=== PATIENT | female | born 1945 | race Caucasian/White ===

== ENCOUNTER 2018-04-14 06:37 | Inpatient (IN) | payer MEDICARE ==
[2018-04-14] VITALS (11 sets, daily range): BP systolic 83–124; BP diastolic 53–82; PULSE 104–134; RESP 20–24; TEMP 96.8–98.2; O2SAT 97–99
[~2018-04-14] VITALS: Ht 152.4 cm; Wt 40.3 kg
[~2018-04-14 06:37] MED LIST: ADVA250A INH; ALBU1AER INH; CART240C4 PO; COMBAER INH; DUONI NEB; GLUCTAB PO; LASI20TA PO; POTA-243 PO; POTA20PA PO; PRED1TAB PO; SIMV40TA PO; SPIRCAP INH; [UNRECOGNIZED DRUG - CODE] PO
[2018-04-14] MEDS ORDERED: POTA-163 PO (07:10)
[2018-04-14] MEDS ORDERED: SPIRCAP INH (07:10)
[2018-04-14] MEDS ORDERED: PRED5TAB PO (07:10)
[2018-04-14] MEDS ORDERED: SIMV40TA PO (07:10)
[2018-04-14] MEDS ORDERED: ALBUAER3 INH (07:10)
[2018-04-14] MEDS ORDERED: FURO20TA PO (07:10)
[2018-04-14] MEDS ORDERED: ADVA250A INH (07:10)
[2018-04-14] MEDS ORDERED: DILT240C44 PO (07:10)
[2018-04-14] MEDS ORDERED: IPRASOL INH (07:10)
[2018-04-14] MEDS ORDERED: SODIUM CHLORID 0.9% 500 ML INJ 500 ML IV ONE ×2 (07:15→08:45)
[2018-04-14] MEDS ORDERED: SODIUM CHLORIDE 0.9% FLUSH 10 ML FLUSH IVF PRN (07:15)
--- NOTE | 2018-04-14 07:18 | PD ---
HPI Chief Complaint: Respiratory Symptoms Time Seen by Provider: 07:06 Travel History International Travel<30 days: No Contact w/Intl Traveler<30days: No Traveled to known affect area: No History of Present Illness HPI Patient presents to the emergency department secondary to difficulty breathing. States that her oxygen malfunction today and she has some shortness of breath. She is on home O2 2-3 L 24/ secondary to COPD. He was brought in by [facility] and received 1 breathing treatment in route. States that she believes her COPD is "acting up" secondary to the equipment failure. She denies chest pain, fever, chills, nausea, vomiting, abdominal pain, diarrhea, recent travel. She reports that her left lower extremity is swollen secondary to "my sherrie." + cough with white phlegm, sputum amount hasn't increased. 0732: daughter also presents to ER stating that the company is coming this afternoon to repair the machine, breathing treatments increase her HR, and the dyspnea is secondary to the equipment failure. Also, her cat scrathched her several months ago on her LLE and she had swelling after that which has resolved. Per patient and her daughter that was months ago. No swelling recently. PFSH Past Medical History Blood Disorders: No Anxiety: Yes Depression: No Cancer: No Cardiovascular Problems: Yes High Cholesterol: Yes COPD: Yes Diabetes: Yes Patient Takes Glucophage: Yes Diminished Hearing: No Endocrine: Yes Gastrointestinal Disorders: No Genitourinary: No Hypertension: Yes (borderline- ) Immune Disorder: No Musculoskeletal: Yes Neurologic: No Psychiatric: No Reproductive: No Respiratory: Yes Tetanus Vaccination: > 5 Years Influenza Vaccination: Yes ?: Not Menopausal: Yes Past Surgical History Cardiac Surgery: No Genitourinary Surgery: No Gynecologic Surgery: Yes (hysterectomy) Hysterectomy: Yes Neurologic Surgery: No Thoracic Surgery: No Other Surgery: Yes (pylonital-cyst removed) Social History Alcohol Use: Yes (1 mixed drink a week) Tobacco Use: No (QUIT 2 YEARS AGO. SMOKED 1 1- 1/2 PPD) Substance Use: No Allergies-Medications (Allergen,Severity, Reaction): Coded Allergies: penicillin G (Unverified Allergy, Mild, [place], 04/14/18) Reported Meds & Prescriptions Reported Meds & Active Scripts Active Reported Pioglitazone (Pioglitazone HCl) 30 Mg Tab 30 Mg PO DAILY Lorazepam 0.5 Mg Tab 0.5 Mg PO Q8H PRN Losartan (Losartan Potassium) 50 Mg Tab 50 Mg PO DAILY Metoprolol Succinate ER 24 HR (Metoprolol Succinate) 100 Mg Tab 100 Mg PO DAILY Prolia Inj (Denosumab) 60 Mg/Ml Inj 60 Mg SQ Q180D Advair Diskus Inh (Fluticasone-Salmeterol Inh) 250-50 Mcg/Blist Aer 1 Puff INH BID Rinse mouth after use. Spiriva Handihaler (Tiotropium Inh) 18 Mcg Cap 18 Mcg INH DAILY 1 capsule = 18 mcg Simvastatin 40 Mg Tab 40 Mg PO HS Prednisone 5 Mg Tab 5 Mg PO DAILY Potassium Chloride ER (Potassium Chloride) 20 Meq Tab 10 Meq PO DAILY Furosemide 20 Mg Tab 20 Mg PO DAILY PRN Duoneb (Ipratropium-Albuterol Neb) 0.5-2.5 Mg/3 Ml Neb 1 Nebule INH Q4HR NEB PRN Proair Hfa 8.5 GM Inh (Albuterol Sulfate) 90 Mcg/Act Aer 1 Puff INH Q4H PRN 108 mcg/actuation Review of Systems Except as stated in HPI: all other systems reviewed are Neg Physical Exam Narrative GENERAL: Thin appearing, on oxygen via nasal cannula and in no acute distress. SKIN: Focused skin assessment warm/dry. HEAD: Atraumatic. Normocephalic. EYES: Extraocular muscles intact bilaterally. No scleral icterus. No injection or drainage. ENT: No nasal bleeding or discharge. Mucous membranes pink and moist. NECK: Trachea midline. No JVD. CARDIOVASCULAR: Tachycardic. No murmur appreciated. RESPIRATORY: No accessory muscle use. Clear to auscultation. Breath sounds equal bilaterally. GASTROINTESTINAL: Abdomen soft, non-tender, nondistended. Hepatic and splenic margins not palpable. MUSCULOSKELETAL: No obvious deformities. No clubbing. No cyanosis. No edema. No left lower extremity edema. NEUROLOGICAL: Awake and alert. No obvious cranial nerve deficits. Motor grossly within normal limits. Normal speech. PSYCHIATRIC: Appropriate mood and affect; insight and judgment normal. Data Data Last Documented VS Vital Signs Date Time Temp Pulse Resp B/P (MAP) Pulse Ox O2 Delivery O2 Flow Rate FiO2 04/14/18 09:14 114 22 115/82 (93) 99 Nasal Cannula 2.00 04/14/18 08:00 98.1 Orders Orders Complete Blood Count With Diff (04/14/18 07:14) Comprehensive Metabolic Panel (04/14/18 07:14) D-Dimer (04/14/18 07:14) Act Partial Throm Time (Ptt) (04/14/18 07:14) Prothrombin Time / Inr (Pt) (04/14/18 07:14) Magnesium (Mg) (04/14/18 07:14) Ckmb (Isoenzyme) Profile (04/14/18 07:14) Troponin I (04/14/18 07:14) Iv Access Insert/Monitor (04/14/18 07:14) Electrocardiogram (04/14/18 07:14) Ecg Monitoring (04/14/18 07:14) Oximetry (04/14/18 07:14) Oxygen Administration (04/14/18 07:14) Chest, Single Ap (04/14/18 07:14) Sodium Chloride 0.9% Flush (Ns Flush) (04/14/18 07:15) Sodium Chlorid 0.9% 500 Ml Inj (Ns 500 M (04/14/18 07:15) Blood Culture (04/14/18 07:59) Lactic Acid Sepsis Protocol (04/14/18 07:59) Levofloxacin 750 Mg Premix Inj (Levaquin (04/14/18 08:00) CKMB (04/14/18 07:40) CKMB% (04/14/18 07:40) Sodium Chlorid 0.9% 500 Ml Inj (Ns 500 M (04/14/18 08:45) Ct Pulmonary Angiogram (04/14/18 09:11) Admit To Inpatient (04/14/18 ) Vital Signs (Adult) Q4H (04/14/18 09:23) Activity Oob With Assistance (04/14/18 09:23) Ammonium Sulfate Operator / Telemetry .CONTINUOUS (04/14/18 09:23) Diet Heart Healthy (04/14/18 Breakfast) Sodium Chlor 0.9% 1000 Ml Inj (Ns 1000 M (04/14/18 09:23) Sodium Chloride 0.9% Flush (Ns Flush) (04/14/18 09:30) Sodium Chloride 0.9% Flush (Ns Flush) (04/14/18 21:00) Acetaminophen (Tylenol) (04/14/18 09:30) Basic Metabolic Panel (Bmp) (04/15/18 06:00) Complete Blood Count With Diff (04/15/18 06:00) Resp Oxygen Tor C Titrat 1-4 L (04/14/18 ) Enoxaparin Inj (Lovenox Inj) (04/14/18 10:00) Naloxone Inj (Narcan Inj) (04/14/18 09:30) Magnesium Hydroxide Liq (Milk Of Magnesi (04/14/18 09:30) Sennosides (Senokot) (04/14/18 09:30) Bisacodyl Supp (Dulcolax Supp) (04/14/18 09:30) Lactulose Liq (Lactulose Liq) (04/14/18 09:30) Inpatient Certification (04/14/18 ) Albuterol-Ipratropium Neb (Duoneb Neb) (04/14/18 14:00) Albuterol-Ipratropium Neb (Duoneb Neb) (04/14/18 09:30) Levofloxacin 750 Mg Premix Inj (Levaquin (04/15/18 09:00) Prednisone (Deltasone) (04/14/18 21:00) Prednisone (Deltasone) (04/14/18 10:00) Diltiazem Cd (Cardizem Cd) (04/15/18 09:00) Budeson-Formot 160-4.5 Mcg Inh (Symbicor (04/14/18 21:00) Pravastatin (Pravachol) (04/14/18 21:00) Admit Order (Ed Use Only) (04/14/18 09:29) Blood Glucose Goal (Criteria) (04/14/18 09:29) Hypoglycemia 70 Mg/Dl Or < (04/14/18 09:29) Notify Dr: Other (04/14/18 09:29) Dextrose 50% In Madai (Vial) Inj (D50w (Vi (04/14/18 09:30) Glucagon Inj (Glucagon Inj) (04/14/18 09:30) Insulin Aspart Supplemtl Scale (Novolog (04/14/18 12:00) Labs Laboratory Tests Test 04/14/18 07:40 04/14/18 08:20 White Blood Count 24.4 TH/MM3 Red Blood Count 4.38 MIL/MM3 Hemoglobin 12.1 GM/DL Hematocrit 37.5 % Mean Corpuscular Volume 85.7 FL Mean Corpuscular Hemoglobin 27.5 PG Mean Corpuscular Hemoglobin Concent 32.1 % Red Cell Distribution Width 14.4 % Platelet Count 261 TH/MM3 Mean Platelet Volume 9.2 FL Neutrophils (%) (Auto) 85.3 % Lymphocytes (%) (Auto) 3.6 % Monocytes (%) (Auto) 8.6 % Eosinophils (%) (Auto) 0.1 % Basophils (%) (Auto) 2.4 % Neutrophils # (Auto) 20.8 TH/MM3 Lymphocytes # (Auto) 0.9 TH/MM3 Monocytes # (Auto) 2.1 TH/MM3 Eosinophils # (Auto) 0.0 TH/MM3 Basophils # (Auto) 0.6 TH/MM3 CBC Comment AUTO DIFF Differential Comment AUTO DIFF CONFIRMED Platelet Estimate NORMAL Platelet Morphology Comment NORMAL Red Cell Morphology Comment NORMAL Blood Urea Nitrogen 16 MG/DL Creatinine 0.79 MG/DL Random Glucose 220 MG/DL Total Protein 6.8 GM/DL Albumin 3.0 GM/DL Calcium Level 9.4 MG/DL Magnesium Level 1.7 MG/DL Alkaline Phosphatase 78 U/L Aspartate Amino Transf (AST/SGOT) 23 U/L Alanine Aminotransferase (ALT/SGPT) 14 U/L Total Bilirubin 0.3 MG/DL Sodium Level 138 MEQ/L Potassium Level 4.9 MEQ/L Chloride Level 95 MEQ/L Carbon Dioxide Level 34.2 MEQ/L Anion Gap 9 MEQ/L Estimat Glomerular Filtration Rate 71 ML/MIN Total Creatine Kinase 109 U/L Creatine Kinase MB 3.4 NG/ML Troponin I LESS THAN 0.02 NG/ML Prothrombin Time 10.7 SEC Prothromb Time International Ratio 1.1 RATIO Activated Partial Thromboplast Time 18.9 SEC D-Dimer Quantitative (PE/DVT) 0.71 MG/L FEU Lactic Acid Level 1.7 mmol/L [facility] Medical Decision Making Medical Screen Exam Complete: Yes Emergency Medical Condition: Yes Interpretation(s) ECG: Sinus tachycardia at 125, short [place], similar to EKG on September 17, 2012 Labs: Leukocytosis, elevated glucose and CO2, elevated d-dimer Last Impressions CT Angiography 04/14/18 0911 Signed Impressions: CONCLUSION: 1. No evidence for pulmonary embolism. 2. Severe emphysema with scattered parenchymal densities likely infectious/inf lammatory. 3. Minimal consolidation anterior right lower lobe. 4. Minimal coronary artery calcifications. Chest X-Ray 04/14/18 0714 Signed Impressions: CONCLUSION: 1. Hazy opacity in the right lung base. The finding could represent pneumonia or scarring. 2. Underlying emphysema. Differential Diagnosis Pulmonary edema, pleural effusion, ACS, pneumonia, COPD exacerbation Narrative Course Patient presents to the emergency department complaining of difficulty breathing secondary to oxygen malfunctioning today. Patient placed on a smoked meat preparer, oxygen via nasal cannula, and labs/EKG/chest x-ray ordered. Patient also hypotensive and tachycardic, normal saline 500 cc bolus ordered. Although tachycardia may be secondary to breathing treatment. 0801: Patient's XR concerning for possible PNA. In light of the initial hypotension, tachy, and now patient states she has in fact had increase sputum production, though she initially denies, will treat with IV abx (levaquin 750mg IV 2/ PCN allergy-swelling). Will also check bd cultures and lactic acid. Admit for PNA. After 250scc IV NS HR decreased to 110 and BP increased to 107/ 55 from 83/58 on initial triage. Her O2 sat is 100% on NC. Patient given a total of 1 L IV normal saline. 0957: Patient has elevated d-dimer, getting CT scan of the chest. She is anxious in CT scanner, will give 0.5 mg IV Ativan. Sepsis Criteria SIRS Criteria (2 or more): Heart rate over 90, WBC > 07973, < 4000 or > 10% bands Sepsis Criteria (SIRS+source): Infect source susp/known Severe Sepsis (+one): Hypotension Diagnosis Primary Impression: Pneumonia Qualified Codes: J18.1 - Lobar pneumonia, unspecified organism Additional Impression: COPD (chronic obstructive pulmonary disease) Qualified Codes: J44.9 - Chronic obstructive pulmonary disease, unspecified Admitting Information Admitting Physician Requests: Admit Condition: Stable Hortencia Calvin MD Apr 14, 2018 07:18
--- NOTE | 2018-04-14 07:53 | RADRPT ---
EXAM DATE: 04/14/2018 7:29 AM EDT AGE/SEX: 72 years / Female INDICATIONS: Short of breath CLINICAL DATA: This is the patient's initial encounter. Patient reports that signs and symptoms have been present for 1 day and indicates a pain score of 0/10. MEDICAL/SURGICAL HISTORY: Chronic obstructive pulmonary disease. None. COMPARISON: [facility], CHEST SINGLE AP, 10/28/2010. . FINDINGS: A single AP erect view of the chest was obtained. This demonstrates hyperinflation both lungs. There is mild patchy opacity remaining in the right lung base which is improved from the prior remote study . Left lung is clear. The heart and mediastinal structures are within normal limits. Atherosclerotic changes are present in the aorta. There are overlying electrocardiogram leads and oxygen tubing. CONCLUSION: 1. Hazy opacity in the right lung base. The finding could represent pneumonia or scarring. 2. Underlying emphysema. Electronically signed by: Hari Wall MD 04/14/2018 7:52 AM EDT
[2018-04-14 07:55] LABS: AUTOMATED NEUTROPHIL # 20.8 TH/MM3 (1.8-7.7); BASOPHIL # 0.6 TH/MM3 (0-0.2); BASOPHIL % 2.4 % (0.0-2.0); EOSINOPHIL % 0.1 % (0.0-4.0); HEMATOCRIT 37.5 % (35.0-46.0); HEMOGLOBIN 12.1 GM/DL (11.6-15.3); LYMPH % 3.6 % (9.0-44.0); LYMPHOCYTE # 0.9 TH/MM3 (1.0-4.8); MEAN CELL VOLUME 85.7 FL (80.0-100.0); MEAN CORPUSCULAR HEMOGLOBIN 27.5 PG (27.0-34.0); MEAN CORPUSCULAR HGB CONC 32.1 % (32.0-36.0); MEAN PLATELET VOLUME 9.2 FL (7.0-11.0); MONO % 8.6 % (0.0-8.0); MONOCYTE # 2.1 TH/MM3 (0-0.9); NEUT % 85.3 % (16.0-70.0); PLATELET COUNT 261 TH/MM3 (150-450); RED BLOOD COUNT 4.38 MIL/MM3 (4.00-5.30); RED CELL DISTRIBUTION WIDTH 14.4 % (11.6-17.2); WHITE BLOOD COUNT 24.4 TH/MM3 (4.0-11.0)
[2018-04-14] MEDS ORDERED: LEVOFLOXACIN 750 MG PREMIX INJ 150 ML IV ONE (08:00)
[2018-04-14 08:09] LABS: CHLORIDE 95 MEQ/L (98-107); SODIUM (NA) 138 MEQ/L (136-145)
[2018-04-14 08:12] LABS: BICARBONATE 34.2 MEQ/L (21.0-32.0); CALCIUM 9.4 MG/DL (8.5-10.1); GLUCOSE,RANDOM 220 MG/DL (74-106); MAGNESIUM 1.7 MG/DL (1.5-2.5)
[2018-04-14 08:13] LABS: BLOOD UREA NITROGEN 16 MG/DL (7-18)
[2018-04-14 08:15] LABS: ALT (GPT) 14 U/L (10-53); AST (GOT) 23 U/L (15-37)
[2018-04-14 08:16] LABS: CREATININE 0.79 MG/DL (0.50-1.00); GLOMERULAR FILTRATION RATE 71 ML/MIN (>89)
[2018-04-14 08:17] LABS: TOTAL BILIRUBIN ADULT 0.3 MG/DL (0.2-1.0); TOTAL PROTEIN 6.8 GM/DL (6.4-8.2)
[2018-04-14 08:19] LABS: ALKALINE PHOSPHATASE 78 U/L (45-117)
[2018-04-14 08:21] LABS: TROPONIN I LESS THAN 0.02 NG/ML (0.02-0.05)
[2018-04-14 09:08] LABS: INTERNATIONAL NORMALIZED RATIO 1.1 RATIO; PROTHROMBIN TIME - PATIENT 10.7 SEC (9.8-11.6)
[2018-04-14 09:10] LABS: D-DIMER 0.71 MG/L FEU (0.00-0.50)
[2018-04-14] MEDS ORDERED: MAGNESIUM HYDROXIDE SUSP 30 ML CUP PO PRN (09:30)
[2018-04-14] MEDS ORDERED: ACETAMINOPHEN 325 MG TAB PO PRN (09:30)
[2018-04-14] MEDS ORDERED: SENNOSIDES 8.6 MG TAB PO PRN (09:30)
[2018-04-14] MEDS ORDERED: NALOXONE HCL 0.4 MG/ML AMP IV PUSH PRN (09:30)
[2018-04-14] MEDS ORDERED: GLUCAGON 1 MG/ML VIAL OTHER PRN (09:30)
[2018-04-14] MEDS ORDERED: RESP: ALBUTEROL 2.5 MG/IPRATROPIUM 0.5 MG NEB (PRN) NEB (09:30)
[2018-04-14] MEDS ORDERED: BISACODYL 10 MG SUPP RECTAL PRN (09:30)
[2018-04-14] MEDS ORDERED: SODIUM CHLORIDE 0.9% FLUSH 10 ML FLUSH IV FLUSH PRN (09:30)
[2018-04-14] MEDS ORDERED: DEXTROSE 50% IN WATER 50 ML VIAL(D50) IV PUSH PRN (09:30)
[2018-04-14] MEDS ORDERED: LACTULOSE SYRUP 20 GM/30 ML CUP PO PRN (09:30)
[2018-04-14] MEDS ORDERED: LORazepam 2 MG/ML VIAL IV PUSH ONE (10:00)
[2018-04-14] MEDS ORDERED: predniSONE 20 MG TAB PO ONE (10:00)
[2018-04-14] MEDS ORDERED: DENO60P SQ (10:20)
[2018-04-14] MEDS ORDERED: PIOG30TA4 PO (10:20)
[2018-04-14] MEDS ORDERED: LOSA50TA PO (10:20)
[2018-04-14] MEDS ORDERED: LORA0.5T PO (10:20)
[2018-04-14] MEDS ORDERED: METO1TAB43 PO (10:20)
[2018-04-14] MEDS ORDERED: IOHEXOL 350 MG/ML 10 ML VIAL (for RAD DIAG) IVCONTRAST ONE (10:25)
--- NOTE | 2018-04-14 10:42 | RADRPT ---
EXAM DATE: 04/14/2018 10:26 AM EDT AGE/SEX: 72 years / Female INDICATIONS: Short of breath. CLINICAL DATA: This is the patient's initial encounter. Patient reports that signs and symptoms have been present for 1 day and indicates a pain score of 0/10. MEDICAL/SURGICAL HISTORY: Hypertension. Chronic obstructive pulmonary disease. Diabetes. Hysterec isabel. RADIATION DOSE: 8.74 CTDI (mGy) COMPARISON: No prior exams available for comparison. TECHNIQUE: Volumetric scanning was performed using a multi-row detector CT scanner during bolus infu ceci of 50 ml Omnipaque 350 (iohexol) nonionic water-soluble contrast as a single exam dose. The rocio a was post processed with a variety of visualization algorithms including full volume maximum intensi ty projection and sliding thin slab reformation. Using automated exposure control and adjustment of t he mA and/or kV according to patient size, radiation dose was kept as low as reasonably achievable to obtain optimal diagnostic quality images. DICOM format image data is available electronically for r eview and comparison. FINDINGS: Pulmonary Arteries: No filling defects are seen in the pulmonary arteries out to the subsegmental ve ssels. The left and right pulmonary arteries are normal in diameter. Lung: Severe centrilobular emphysema. Bullous changes are noted. A few scattered parenchymal densiti es are seen within the anterior left upper lobe and right middle lobe. Minimal consolidation in the r ight lower lobe anteriorly. Slight bronchiectatic changes.. Effusion: None. Mediastinum: No evidence of mediastinal or hilar adenopathy. Coronary artery calcifications. Atheros clerotic changes of the thoracic aorta without aneurysm. Other: The axilla is unremarkable. CONCLUSION: 1. No evidence for pulmonary embolism. 2. Severe emphysema with scattered parenchymal densities likely infectious/inflammatory. 3. Minimal consolidation anterior right lower lobe. 4. Minimal coronary artery calcifications. Electronically signed by: Calderon Blake MD 04/14/2018 10:41 AM EDT
[2018-04-14] MEDS: SODIUM CHLOR 0.9% 1000 ML INJ 1,000 ML IV SCH ×2 (10:52→20:20)
[2018-04-14] MEDS: ENOXAPARIN SODIUM 40 MG/0.4 ML SYRINGE SQ SCH (10:52)
[2018-04-14] MEDS: INSULIN ASPART SUPPLEMENTAL SCALE SQ SCH ×3 (12:00→20:19)
--- NOTE | 2018-04-14 12:56 | HHI.HP ---
[facility] lEly Mcrae MD Admission Diagnosis Pneumonia, COPD, tachycardia Diagnoses: (1) Sepsis Diagnosis: Principal (2) Pneumonia Diagnosis: Principal Chief Complaint: Oxygen concentrator was broke Travel History International Travel<30 Days: No Contact w/Intl Traveler <30 Da: No Traveled to Known Affected Are: No History of Present Illness 72-year-old female with known history of hypertension, hyper lipidemia , chronic hypoxic respiratory failure, chronic obstructive pulmonary disease, anxiety, diabetes who presented to the hospital by [facility] because her oxygen concentrator was not working. Patient does have history of chronic hypoxic respiratory failure in which she is on 3 L nasal cannula all the time. Apparently her machine broke this morning and her family called the ambulance in order to supply her with oxygen. Patient was brought to the ER for evaluation by [facility]. Patient had workup done emergency department and found to have leukocytosis, tachycardia, x-ray finding indicating right lower lobe consolidation. Because of those reasons is recommended by the ER physician that the patient be admitted for further evaluation and management. Patient denies any change in her respiratory status. She has had some cough with some minimal phlegm production which had a slight yellow coloration per the daughter. Did discuss CODE STATUS with the patient who wants to be no code at this time. The family is also indicating that they need help in the outpatient setting with her mother's care. I did discuss with them hospice management and they are open to consultation. Review of Systems Respiratory: COMPLAINS OF: Cough, Shortness of breath Except as stated in HPI: all other systems reviewed are Neg Past Family Social History Past Medical History Chronic hypoxic respiratory failure Chronic obstructive pulmonary disease Emphysema Hypertension Hyperlipidemia Diabetes Anxiety Past Surgical History Hysterectomy Pilonidal cyst removal Reported Medications Reported Meds & Active Scripts Active Reported Pioglitazone (Pioglitazone HCl) 30 Mg Tab 30 Mg PO DAILY Lorazepam 0.5 Mg Tab 0.5 Mg PO Q8H PRN Losartan (Losartan Potassium) 50 Mg Tab 50 Mg PO DAILY Metoprolol Succinate ER 24 HR (Metoprolol Succinate) 100 Mg Tab 100 Mg PO DAILY Prolia Inj (Denosumab) 60 Mg/Ml Inj 60 Mg SQ Q180D Advair Diskus Inh (Fluticasone-Salmeterol Inh) 250-50 Mcg/Blist Aer 1 Puff INH BID Rinse mouth after use. Spiriva Handihaler (Tiotropium Inh) 18 Mcg Cap 18 Mcg INH DAILY 1 capsule = 18 mcg Simvastatin 40 Mg Tab 40 Mg PO HS Prednisone 5 Mg Tab 5 Mg PO DAILY Potassium Chloride ER (Potassium Chloride) 20 Meq Tab 10 Meq PO DAILY Furosemide 20 Mg Tab 20 Mg PO DAILY PRN Duoneb (Ipratropium-Albuterol Neb) 0.5-2.5 Mg/3 Ml Neb 1 Nebule INH Q4HR NEB PRN Proair Hfa 8.5 GM Inh (Albuterol Sulfate) 90 Mcg/Act Aer 1 Puff INH Q4H PRN 108 mcg/actuation Allergies: Coded Allergies: penicillin G (Unverified Allergy, Mild, CAMERON, 04/14/18) Family History Family history reviewed and mother had COPD. Father with side of the family lived to old age Social History Is inconclusive exactly when the patient quit smoking but there indicating approximately 10 years ago she quit smoking. Prior to that she smoked 1 pack of cigarettes a day since she was a teenager. She does have history of drinking alcohol occasionally. Denies any illicit drug use Physical Exam Vital Signs Vital Signs Date Time Temp Pulse Resp B/P (MAP) Pulse Ox O2 Delivery O2 Flow Rate FiO2 04/14/18 11:43 96.8 115 20 92/53 (66) 98 04/14/18 11:20 119 24 110/62 (78) 98 3.00 04/14/18 09:40 Nasal Cannula 3.00 04/14/18 09:14 114 22 115/82 (93) 99 Nasal Cannula 2.00 04/14/18 08:00 98.1 120 24 115/60 (78) 97 Nasal Cannula 3.00 04/14/18 07:46 Nasal Cannula 04/14/18 07:46 97 Nasal Cannula 3.00 04/14/18 07:20 121 24 107/55 (72) 97 Nasal Cannula 3.00 04/14/18 06:45 126 22 98 Nasal Cannula 3.00 04/14/18 06:41 98.2 126 20 83/58 (66) 98 Physical Exam GENERAL: Well-developed, frail and cachectic, in no acute distress. alert and orientated HEENT: Head is normocephalic without any lesions or masses noted. Bitemporal wasting, facial features are symmetric. Eyes: Pupils equal round reactive to light. Extraocular muscles are intact. Conjunctivae were clear. Oropharyngeal: Pharynx without any erythema edema. Tongue is midline without deviation. Buccal mucosa is moist without any masses or lesions NECK: Supple without any masses. Trachea midline no deviation. No JVD, no bruits are appreciated CARDIAC: Regular rhythm, regular rate. S1/S2 are heard. No murmurs gallops or rubs. LUNGS: Diminished breath sounds noted throughout. No wheeze, rhonchi or rales. No use of accessory muscles on inspiration or expiration. ABDOMEN: Soft, nontender. Nondistended. Bowel sounds heard in all 4 quadrants. No organomegaly or masses. Negative rebound, negative guarding EXTREMITIES: No edema, pulses are equal bilaterally. No cyanosis or clubbing NEUROLOGY: Mood and affect appear appropriate. Cranial nerves II through XII grossly intact. Muscle strength 5/5 in upper and lower extremities bilaterally. Deep tendon reflexes are 2+ in upper and lower extremities bilaterally. Laboratory Laboratory Tests Test 04/14/18 07:40 04/14/18 08:20 White Blood Count 24.4 Red Blood Count 4.38 Hemoglobin 12.1 Hematocrit 37.5 Mean Corpuscular Volume 85.7 Mean Corpuscular Hemoglobin 27.5 Mean Corpuscular Hemoglobin Concent 32.1 Red Cell Distribution Width 14.4 Platelet Count 261 Mean Platelet Volume 9.2 Neutrophils (%) (Auto) 85.3 Lymphocytes (%) (Auto) 3.6 Monocytes (%) (Auto) 8.6 Eosinophils (%) (Auto) 0.1 Basophils (%) (Auto) 2.4 Neutrophils # (Auto) 20.8 Lymphocytes # (Auto) 0.9 Monocytes # (Auto) 2.1 Eosinophils # (Auto) 0.0 Basophils # (Auto) 0.6 CBC Comment AUTO DIFF Differential Comment AUTO DIFF CONFIRMED Platelet Estimate NORMAL Platelet Morphology Comment NORMAL Red Cell Morphology Comment NORMAL Blood Urea Nitrogen 16 Creatinine 0.79 Random Glucose 220 Total Protein 6.8 Albumin 3.0 Calcium Level 9.4 Magnesium Level 1.7 Alkaline Phosphatase 78 Aspartate Amino Transf (AST/SGOT) 23 Alanine Aminotransferase (ALT/SGPT) 14 Total Bilirubin 0.3 Sodium Level 138 Potassium Level 4.9 Chloride Level 95 Carbon Dioxide Level 34.2 Anion Gap 9 Estimat Glomerular Filtration Rate 71 Total Creatine Kinase 109 Creatine Kinase MB 3.4 Troponin I LESS THAN 0.02 Prothrombin Time 10.7 Prothromb Time International Ratio 1.1 Activated Partial Thromboplast Time 18.9 D-Dimer Quantitative (PE/DVT) 0.71 Lactic Acid Level 1.7 Date/Time Source Procedure Growth Status 04/14/18 08:20 Blood Peripheral Aerobic Blood Culture Pending Received 04/14/18 08:20 Blood Peripheral Anaerobic Blood Culture Pending Received Result Diagram: 04/14/18 0740 04/14/18 [address] Angiography 04/14/18 0911 Signed Impressions: CONCLUSION: 1. No evidence for pulmonary embolism. 2. Severe emphysema with scattered parenchymal densities likely infectious/inf lammatory. 3. Minimal consolidation anterior right lower lobe. 4. Minimal coronary artery calcifications. Chest X-Ray 04/14/18 0714 Signed Impressions: CONCLUSION: 1. Hazy opacity in the right lung base. The finding could represent pneumonia or scarring. 2. Underlying emphysema. Septic Shock Reassessment Septic shock perfusion: reassessment completed Caprini VTE Risk Assessment Caprini VTE Risk Assessment: Mod/High Risk (score >= 2) Caprini Risk Assessment Model Point Value = 1 Point Value = 2 Point Value = 3 Point Value = 5 Age 41-60 Minor surgery BMI > 25 kg/m2 Swollen legs Varicose veins or History of unexplained or recurrent spontaneous Oral contraceptives or hormone replacement Sepsis (< 1 month) Serious lung disease, including pneumonia (< 1 month) Abnormal pulmonary function Acute myocardial infarction Congestive heart failure (< 1 month) History of inflammatory bowel disease Medical patient at bed rest Age 61-74 Arthroscopic surgery Major open surgery (> 45 min) Laparoscopic surgery (> 45 min) Malignancy Confined to bed (> 72 hours) Immobilizing plaster cast Central venous access Age >= 75 History of VTE Family history of VTE Factor V Leiden Prothrombin [id number] Lupus anticoagulant Anticardiolipin antibodies Elevated serum homocysteine Heparin-induced thrombocytopenia Other congenital or acquired thrombophilia Stroke (< 1 month) Elective arthroplasty Hip, pelvis, or leg fracture Acute spinal cord injury (< 1 month) Prophylaxis Regimen Total Risk Factor Score Risk Level Prophylaxis Regimen 0-1 Low Early ambulation 2 Moderate Order ONE of the following: *Sequential Compression Device (SCD) *Heparin 5000 units SQ BID 3-4 Higher Order ONE of the following medications: *Heparin 5000 units SQ TID *Enoxaparin/Lovenox 40 mg SQ daily (WT < 150 kg, CrCl > 30 mL/min) *Enoxaparin/Lovenox 30 mg SQ daily (WT < 150 kg, CrCl > 10-29 mL/min) *Enoxaparin/Lovenox 30 mg SQ BID (WT < 150 kg, CrCl > 30 mL/min) AND/OR *Sequential Compression Device (SCD) 5 or more Highest Order ONE of the following medications: *Heparin 5000 units SQ TID (Preferred with Epidurals) *Enoxaparin/Lovenox 40 mg SQ daily (WT < 150 kg, CrCl > 30 mL/min) *Enoxaparin/Lovenox 30 mg SQ daily (WT < 150 kg, CrCl > 10-29 mL/min) *Enoxaparin/Lovenox 30 mg SQ BID (WT < 150 kg, CrCl > 30 mL/min) AND *Sequential Compression Device (SCD) Assessment and Plan Assessment and Plan Sepsis -Patient meets criteria admission with leukocytosis, tachycardia, neurological findings of right lower lobe pneumonia -Patient was started on Levaquin, will add Zithromax -Obtain sputum culture, obtain urinalysis, continue to follow blood culture -Patient does have chronically elevated leukocytosis, likely secondary to chronic steroid use Chronic hypoxic respiratory failure, chronic obstructive pulmonary disease -Continue O2 supplementation to maintain O2 sats greater than 88% -Duo nebs every 6 hours while awake and every 4 hours as needed -Continue Symbicort -Consult hospice for evaluation, family is in agreement Hypertension, hyperlipidemia -Continue home medications Diabetes -Accu-Cheks with sliding scale insulin DVT prevention -Subcutaneous Lovenox Code Status No code DNR, this was discussed with the patient. She is alert and orientated and able to make her own decisions. She does not want to be kept alive by any artificial means. She does not want to have intubation, ventilator management, CPR, defibrillation. Physician Certification 2 Midnight Certification Type: Admission for Inpatient Services Order for Inpatient Services The services are ordered in accordance with Medicare regulations or non- Medicare payer requirements, as applicable. In the case of services not specified as inpatient-only, they are appropriately provided as inpatient services in accordance with the 2-midnight benchmark. Estimated LOS (days): 3 days is the estimated time the patient will need to remain in the hospital, assuming treatment plan goals are met and no additional complications. Post-Hospital Plan: Not yet determined Problem Qualifiers (1) Pneumonia: Qualified Codes: J18.1 - Lobar pneumonia, unspecified organism Josep Tirado Apr 14, 2018 12:56
--- NOTE | 2018-04-14 14:33 | EKG ---
Date Performed: 04/14/2018 Time Performed: 07:37:13 PTAGE: 72 years EKG: SINUS TACHYCARDIA WITH SHORT IN INTERVAL ABNORMAL RHYTHM ECG Compared to PREVIOUS TRACING , right atrial abnormality is new. PREVIOUS TRACIN09/17/2012 13.20 DOCTOR: Joaquín Wilson Interpretating Date/Time 04/14/2018 14:33:17
[2018-04-14] MEDS: RESP: ALBUTEROL 2.5 MG/IPRATROPIUM 0.5 MG NEB (SCH) NEB ×2 (14:48→18:52)
[2018-04-14] MEDS ORDERED: ONDANSETRON ODT 4 MG TAB PO PRN (15:00)
[2018-04-14] MEDS ORDERED: LORazepam 0.5 MG TAB PO PRN (19:45)
[2018-04-14] MEDS: predniSONE 20 MG TAB PO SCH (20:18)
[2018-04-14] MEDS: PRAVASTATIN SOD 40 MG TAB PO SCH (20:18)
[2018-04-14] MEDS: SODIUM CHLORIDE 0.9% FLUSH 10 ML FLUSH IV FLUSH SCH (20:18)
[2018-04-14] MEDS: BUDESONIDE-FORMOTEROL 160/4.5 MCG INHALER INH SCH (20:19)
[2018-04-15] VITALS (13 sets, daily range): BP systolic 113–139; BP diastolic 49–62; PULSE 100–134; RESP 18–54; TEMP 96–98.3; O2SAT 86–100
[2018-04-15] MEDS: SODIUM CHLOR 0.9% 1000 ML INJ 1,000 ML IV SCH (05:45)
[2018-04-15 06:23] LABS: AUTOMATED NEUTROPHIL # 13.1 TH/MM3 (1.8-7.7); BASOPHIL % 0.1 % (0.0-2.0); EOSINOPHIL # 0.1 TH/MM3 (0-0.4); EOSINOPHIL % 0.7 % (0.0-4.0); HEMATOCRIT 33.3 % (35.0-46.0); HEMOGLOBIN 10.6 GM/DL (11.6-15.3); LYMPH % 6.6 % (9.0-44.0); MEAN CELL VOLUME 88.1 FL (80.0-100.0); MEAN CORPUSCULAR HEMOGLOBIN 28.2 PG (27.0-34.0); MEAN PLATELET VOLUME 8.6 FL (7.0-11.0); MONO % 3.2 % (0.0-8.0); MONOCYTE # 0.5 TH/MM3 (0-0.9); NEUT % 89.4 % (16.0-70.0); PLATELET COUNT 262 TH/MM3 (150-450); RED BLOOD COUNT 3.78 MIL/MM3 (4.00-5.30); RED CELL DISTRIBUTION WIDTH 15.2 % (11.6-17.2); WHITE BLOOD COUNT 14.7 TH/MM3 (4.0-11.0)
[2018-04-15 06:49] LABS: BICARBONATE 36.2 MEQ/L (21.0-32.0); CALCIUM 8.5 MG/DL (8.5-10.1); CREATININE 0.5 MG/DL (0.50-1.00)
[2018-04-15] MEDS: RESP: ALBUTEROL 2.5 MG/IPRATROPIUM 0.5 MG NEB (SCH) NEB ×3 (07:23→20:20)
--- NOTE | 2018-04-15 07:49 | HHI.DCPOC ---
Discharge Care Plan Diagnosis: (1) Sepsis (2) Chronic obstructive pulmonary disease (3) Chronic respiratory failure with hypoxia Goals to Promote Your Health * To prevent worsening of your condition and complications * To maintain your health at the optimal level Directions to Meet Your Goals Take your medications as prescribed Follow your dietary instruction Follow activity as directed Keep your appointments as scheduled Take your immunizations and boosters as scheduled If your symptoms worsen call your PCP, if no PCP go to Urgent Care Center or Emergency Room Smoking is Dangerous to Your Health. Avoid second hand smoke Call the 24-hour hour crisis hotline for domestic abuse at Josep Tirado Apr 15, 2018 07:49
--- NOTE | 2018-04-15 08:02 | HHI.PR ---
Subjective Remarks Patient seen and examined today for follow-up on chronic hypoxic respiratory failure, chronic obstructive pulmonary disease. Patient states that she feels if her breathing is little worse this morning than usual. Patient has not required any increase in her O2 supplementation. Patient remains afebrile Objective Vitals Vital Signs Date Time Temp Pulse Resp B/P (MAP) Pulse Ox O2 Delivery O2 Flow Rate FiO2 04/15/18 00:00 97.3 100 18 127/58 (81) 97 04/14/18 20:00 98.1 134 20 124/56 (78) 98 04/14/18 20:00 98 Nasal Cannula 2.00 04/14/18 18:54 99 Nasal Cannula 2.00 04/14/18 15:19 97.0 104 20 100/58 (72) 98 04/14/18 14:52 98 Nasal Cannula 2.00 04/14/18 11:43 96.8 115 20 92/53 (66) 98 04/14/18 11:40 109 04/14/18 11:20 119 24 110/62 (78) 98 3.00 04/14/18 09:40 Nasal Cannula 3.00 04/14/18 09:14 114 22 115/82 (93) 99 Nasal Cannula 2.00 04/14/18 08:00 98.1 120 24 115/60 (78) 97 Nasal Cannula 3.00 I/O 04/14/18 04/14/18 04/14/18 04/15/18 04/15/18 04/15/18 07:00 15:00 23:00 07:00 15:00 23:00 Intake Total 1300 ml 780 ml 1791 ml 198 ml Balance 1300 ml 780 ml 1791 ml 198 ml Intake Oral 150 ml 780 ml 240 ml IV Total 1150 ml 1551 ml 198 ml # Voids 1 2 # Bowel Movements 0 Result Diagram: 04/15/18 0455 04/15/18 [address] Angiography 04/14/18 0911 Signed Impressions: CONCLUSION: 1. No evidence for pulmonary embolism. 2. Severe emphysema with scattered parenchymal densities likely infectious/inf lammatory. 3. Minimal consolidation anterior right lower lobe. 4. Minimal coronary artery calcifications. Chest X-Ray 04/14/18 0714 Signed Impressions: CONCLUSION: 1. Hazy opacity in the right lung base. The finding could represent pneumonia or scarring. 2. Underlying emphysema. Objective Remarks GENERAL: Well-developed, frail and cachectic, in no acute distress. alert and orientated HEENT: Head is normocephalic without any lesions or masses noted. Bitemporal wasting, facial features are symmetric. Eyes: Extraocular muscles are intact. Conjunctivae were clear. NECK: Supple without any masses. Trachea midline no deviation. No JVD, CARDIAC: Regular rhythm, regular rate. S1/S2 are heard. No murmurs gallops or rubs. LUNGS: Diminished breath sounds noted throughout. No wheeze, rhonchi or rales. No use of accessory muscles on inspiration or expiration. ABDOMEN: Soft, nontender. Nondistended. Bowel sounds heard in all 4 quadrants. No organomegaly or masses. Negative rebound, negative guarding EXTREMITIES: No edema, pulses are equal bilaterally. No cyanosis or clubbing NEUROLOGY: Mood and affect appear appropriate. Cranial nerves II through XII grossly intact. Moving all extremities, speech is clear Urinary Catheter: No Vascular Central Line Catheter: No A/P Assessment and Plan Sepsis -Patient meets criteria admission with leukocytosis, tachycardia, radiological findings of right lower lobe pneumonia -Continue Levaquin, Zithromax -Awaiting sputum culture, urinalysis, -continue to follow blood culture -Patient does have chronically elevated leukocytosis, likely secondary to chronic steroid use. Improved after IV hydration Chronic hypoxic respiratory failure, chronic obstructive pulmonary disease -Patient with increased respiratory effort this morning. Will check chest x- ray. -Medical records indicate that patient has received at least 4 L of fluid since admission. Patient has had increased weight of at least 2 kg. May need some mild diuresis depending on chest x-ray. -Continue O2 supplementation to maintain O2 sats greater than 88% -Duo nebs every 6 hours while awake and every 4 hours as needed -Continue Symbicort -Consult hospice for evaluation, family is in agreement. Patient wants to wait to speak to hospice with family -Patient had worsening in mental status, arterial blood gas was performed which does show significant hypercapnia -Results were discussed with the family extensively about hypercapnia, her respiratory failure, prognosis. They indicate that would like to have a trial of BiPAP in order to see if she improves -Patient was placed on BiPAP 09/25/40, -Patient was given Solu-Medrol 60 mg IV 1, Lasix 20 mg IV 1, nebulizer treatments -Patient mental status and hypercapnia did not improve despite aggressive management with BiPAP, IV medications -This was discussed with the family at bedside and presently the patient does not want to have the BiPAP mask on anymore and family does agree. They are in agreement with comfort measures and hospice care. Altered mental status, decreased level consciousness secondary to CO2 narcosis -Avoided sedating medications -Blood gas that showed significant hypercapnia, and despite respiratory measures with BiPAP hypercapnia did not improve -Family does not want any further workup entertained at this time Hypertension, hyperlipidemia -Continue home medications Diabetes -Accu-Cheks with sliding scale insulin DVT prevention -Subcutaneous Lovenox Code Status No code DNR, this was discussed with the patient. She is alert and orientated and able to make her own decisions. She does not want to be kept alive by any artificial means. She does not want to have intubation, ventilator management, CPR, defibrillation. Discharge Planning Discharge planning to hospice care facility or home with hospice Activity: Ad rafaela. Diet: Regular diet Medication per medication reconciliation Follow-up with primary doctor in 1 week Josep Tirado Apr 15, 2018 08:02
[2018-04-15] MEDS ORDERED: DILTIAZEM-CD 240 MG CAP ER PO SCH (09:00)
[2018-04-15] MEDS ORDERED: LEVOFLOXACIN 750 MG PREMIX INJ 150 ML IV SCH (09:00)
[2018-04-15] MEDS: INSULIN ASPART SUPPLEMENTAL SCALE SQ SCH ×4 (09:18→22:10)
[2018-04-15] MEDS: BUDESONIDE-FORMOTEROL 160/4.5 MCG INHALER INH SCH ×2 (09:20→22:11)
[2018-04-15] MEDS: SODIUM CHLORIDE 0.9% FLUSH 10 ML FLUSH IV FLUSH SCH ×2 (09:21→22:10)
[2018-04-15] MEDS: ENOXAPARIN SODIUM 40 MG/0.4 ML SYRINGE SQ SCH (09:21)
[2018-04-15] MEDS: predniSONE 20 MG TAB PO SCH ×2 (09:21→20:30)
--- NOTE | 2018-04-15 12:23 | RADRPT ---
EXAM DATE: 04/15/2018 11:16 AM EDT AGE/SEX: 72 years / Female INDICATIONS: Short of Breath CLINICAL DATA: This is the patient's subsequent encounter. Patient reports that signs and symptoms h ave been present for 2 days and indicates a pain score of 0/10. MEDICAL/SURGICAL HISTORY: Chronic obstructive pulmonary disease. Hypertension. Diabetes melli tus type II. None. COMPARISON: [facility], CT PULMONARY ANGIOGRAM, 04/14/2018. . FINDINGS: There is underlying emphysema. Small effusions. There is obscuration of the right heart border from a nterior right lower lobe atelectasis. Minimal lingular opacity. CONCLUSION: Stable subsegmental atelectasis or consolidation at the right lung base. Severe emphysema. Electronically signed by: Hiro Blackwood MD 04/15/2018 12:22 PM EDT
[2018-04-15] MEDS ORDERED: methylPREDNISolone SOD SUCC 125 MG/2 ML VIAL IV PUSH ONE (16:00)
[2018-04-15] MEDS ORDERED: FUROSEMIDE 20 MG/2 ML VIAL IV PUSH ONE (16:00)
[2018-04-15] MEDS ORDERED: BISACODYL 10 MG SUPP RECTAL PRN (17:45)
[2018-04-15] MEDS ORDERED: MORPHINE SULFATE ORAL SOLN 10 MG/0.5 ML SYRINGE SL PRN ×2 (17:45)
[2018-04-15] MEDS ORDERED: ACETAMINOPHEN 650 MG SUPP RECTAL PRN (17:45)
[2018-04-15] MEDS ORDERED: LORazepam 1 MG TAB PO/SL PRN (17:45)
[2018-04-15] MEDS ORDERED: PROMETHAZINE HCL 25 MG SUPP RECTAL PRN (17:45)
[2018-04-15] MEDS ORDERED: PROMETHAZINE HCL 25 MG TAB PO PRN (17:45)
[2018-04-15] MEDS ORDERED: ACETAMINOPHEN 325 MG TAB PO PRN (17:45)
[2018-04-15] MEDS ORDERED: LORazepam 0.5 MG TAB PO/SL PRN (17:45)
[2018-04-15] MEDS ORDERED: PROCHLORPERAZINE MALEATE 10 MG TAB PO PRN (17:45)
[2018-04-15] MEDS ORDERED: HYOSCYAMINE 0.125 MG TAB PO/SL PRN ×2 (17:45)
[2018-04-15] MEDS ORDERED: PROM25SU PR (17:52)
[2018-04-15] MEDS ORDERED: LEVS0.123 PO/SL (17:52)
[2018-04-15] MEDS ORDERED: LORA-474 PO/SL (17:52)
[2018-04-15] MEDS ORDERED: MORP20SO2 SL (17:52)
[2018-04-15] MEDS ORDERED: PROC10TA PO (17:52)
[2018-04-15] MEDS ORDERED: LORA-392 PO (17:52)
[2018-04-15] MEDS ORDERED: LORA-392 PO/SL (17:52)
[2018-04-15] MEDS ORDERED: PROM25TA10 PO (17:52)
[2018-04-15] MEDS ORDERED: ACET325T15 PO (17:52)
[2018-04-15] MEDS: PRAVASTATIN SOD 40 MG TAB PO SCH (20:30)
== END 2018-04-15 23:05 | disposition hospice, inpatient (51) | DRG 871 ==
LOC: PHED 06:37 → PHEDA 09:31 → PH3A 11:10 → PHICU 04-15 14:48
PROVIDERS: ADMIT Hospitalist; ATTEND Hospitalist
PROC: 5A09357 Assistance with Respiratory Ventilation, Less than 24 Consecutive Hours, Continuous Positive Airway Pressure (ICD-10-PCS; principal; 2018-04-15)
DX: A41.9 Sepsis, unspecified organism (principal); J18.9 Pneumonia, unspecified organism; J96.92 Respiratory failure, unspecified with hypercapnia; I95.9 Hypotension, unspecified; R64 Cachexia; J44.0 Chronic obstructive pulmonary disease with (acute) lower respiratory infection; J96.11 Chronic respiratory failure with hypoxia; Z68.1 Body mass index [BMI] 19.9 or less, adult; Z99.81 Dependence on supplemental oxygen; E11.9 Type 2 diabetes mellitus without complications; F41.9 Anxiety disorder, unspecified; E78.5 Hyperlipidemia, unspecified; I10 Essential (primary) hypertension; R00.0 Tachycardia, unspecified; Z66 Do not resuscitate; Z79.52 Long term (current) use of systemic steroids; Z82.5 Family history of asthma and other chronic lower respiratory diseases; Z87.891 Personal history of nicotine dependence; Z88.0 Allergy status to penicillin
CPT/HCPCS: 36600; 71045; 71275; 80048; 80053; 82550; 82552; 82805; 82948; 83605; 83735; 84484; 85025; 85379; 85610; 85730; 87040; 93005; 94002; 94640; 94664; J1650; J1815; J1940; J1956; J2060; J2930; J7030; J7040; J7512; Q9967